=== PATIENT | male | born 1995 ===

== ENCOUNTER 2018-05-21 19:14 | Emergency (ER) | payer SELFPAY ==
[~2018-05-21] VITALS: Ht 167.6 cm; Wt 72.6 kg
[2018-05-21 19:16] VITALS: BP 148/82
[2018-05-21] MEDS ORDERED: PRED50TA PO (19:29)
--- NOTE | 2018-05-21 19:30 | PHYS DOC ---
Adult General Chief Complaint Chief Complaint: LOWER BACK PAIN OR INJURY HPI HPI Patient is a 23 year old male who presents with bilateral back pain for last 2 days that radiates down the back of his right leg down to his knee. Patient states that it feels better when he lays flat it hurts worse when he is just up and stands up. 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 Patient states it is sharp and shooting. She rates his pain about 9 out of 10. Patient states that he has no primary care provider. Review of Systems Review of Systems Constitutional: Denies fever or chills [] Eyes: Denies change in visual acuity, redness, or eye pain [] HENT: Denies nasal congestion or sore throat [] Respiratory: Denies cough or shortness of breath [] Cardiovascular: No additional information not addressed in HPI [] GI: Denies abdominal pain, nausea, vomiting, bloody stools or diarrhea [] : Denies dysuria or hematuria [] Musculoskeletal: bilateral low back pain that radiates into right lower leg or joint pain [] Integument: Denies rash or skin lesions [] Neurologic: Denies headache, focal weakness or sensory changes [] Endocrine: Denies polyuria or polydipsia [] All other systems were reviewed and found to be within normal limits, except as documented in this note. Current Medications Current Medications Current Medications Medications (Trade) Dose Ordered Sig/Julia Start Time Stop Time Status Last Admin Dose Admin Dexamethasone (Decadron) 6 mg 1X STAT 05/21/18 19:31 05/21/18 19:48 DC 05/21/18 19:31 6 MG Allergies Allergies Allergies Coded Allergies Type Severity Reaction Last Updated Verified No Known Drug Allergies 05/21/18 No Physical Exam Physical Exam Constitutional: Well developed, well nourished, no acute distress, non-toxic appearance. [] HENT: Normocephalic, atraumatic, bilateral external ears normal, oropharynx moist, no oral exudates, nose normal. [] Eyes: PERRLA, EOMI, conjunctiva normal, no discharge. [] Neck: Normal range of motion, no tenderness, supple, no stridor. [] Cardiovascular:Heart rate regular rhythm, no murmur [] Lungs & Thorax: Bilateral breath sounds clear to auscultation [] Abdomen: Bowel sounds normal, soft, no tenderness, no masses, no pulsatile masses. [] Skin: Warm, dry, no erythema, no rash. [] Back: Bilateral lower back pain that radiates down right leg to knee. No tenderness, no CVA tenderness. [] Extremities: No tenderness, no cyanosis, no clubbing, ROM intact, no edema. [] Neurologic: Alert and oriented X 3, normal motor function, normal sensory function, no focal deficits noted. [] Psychologic: Affect normal, judgement normal, mood normal. [] Current Patient Data Vital Signs Vital Signs Date Time Temp Pulse Resp B/P (MAP) Pulse Ox O2 Delivery O2 Flow Rate FiO2 05/21/18 19:16 98.3 88 16 148/82 (104) 99 Room Air 98.3 EKG EKG [] Radiology/Procedures Radiology/Procedures [] Course & Med Decision Making Course & Med Decision Making Patient is a 23 year old male who presents with bilateral back pain for last 2 days that radiates down the back of his right leg down to his knee. Patient states that it feels better when he lays flat it hurts worse when he is just up and stands up. 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 Patient states it is sharp and shooting. Patient rates his pain about 9 out of 10. Patient states that he has no primary care provider. Patient denies any urinary symptoms. Patient is alert and oriented. Patient denies any numbness or tingling. Patient has no extremity edema. Pedal pulses present in bilateral lower extremity. Lungs are clear in all lobes and heart rate is regular without murmur. Patient is neurologically intact. Patient is ambulatory with a steady gait. Patient denies past medical history, or taking any medications daily. Patient also denies smoking, drug use, or alcohol. He states he she's been taking Tylenol and ibuprofen for the pain the last couple days but is not really helping. Patient is given a dose of dexamethasone in the ED and will start 4 days of prednisone starting in 2 days patient take ibuprofen for pain. Patient will be given a pamphlet so he can follow up with a primary care provider. [] Staff Physician Addendum: I was working in the ER during the course of this patient's visit. I was available for consultation as needed, but I was not directly involved in the care of this patient. Dragon Disclaimer Dragon Disclaimer This electronic medical record was generated, in whole or in part, using a voice recognition dictation system. Departure Departure Impression: Primary Impression: Sciatic nerve pain Disposition: HOME, SELF-CARE Condition: STABLE Patient Instructions: Sciatica Additional Instructions: Follow up with a primary care doctor. Take medications as prescribed. Scripts Prednisone (PREDNISONE) 50 Mg Tablet 1 TAB PO DAILY, #4 TAB Begin taking 05/23 Prov: JESSICA SANTIAGO APRN 05/21/18 Problem Qualifiers Primary Impression: Sciatic nerve pain Laterality: right Qualified Codes: M54.31 - Sciatica, right side JESSICA SANTIAGO APRN May 21, 2018 19:30 KAUSHIK GELLER MD May 21, 2018 23:17
[2018-05-21] MEDS ORDERED: DEXAMETHASONE 4 MG TABLET PO STA (19:31)
== END 2018-05-21 19:50 | disposition home or self-care (01) ==
LOC: ER 19:14
DX: M54.41 Lumbago with sciatica, right side (principal)
CPT/HCPCS: 99283; J8540